=== PATIENT | female | born 1955 | race Caucasian/White ===

== ENCOUNTER 2023-02-01 14:41 | Emergency (ER) | payer MEDICARE, BC ==
[2023-02-01] MEDS ORDERED: Sodium Chloride 0.9% 10 ML Syringe FLUSH PRN (14:52)
[2023-02-01] MEDS ORDERED: Sodium Chloride 0.9% 1,000 ML IV SCH (15:00)
[2023-02-01 15:18] LABS: BASOPHILS ABSOLUTE AUTO 0.07 K/mm3 (0.01-0.08); BASOPHILS PERCENT AUTO 0.8 % (0.1-1.2); EOSINOPHILS ABSOLUTE AUTO 0.18 K/mm3 (0.04-0.36); HEMATOCRIT 39.9 % (34.1-44.9); HEMOGLOBIN 13.1 gm/dl (11.2-15.7); IMMATURE GRAN ABSOLUTE AUTO 0.02 K/mm3 (0.00-0.10); IMMATURE GRAN PERCENT AUTO 0.2 % (<=1.0); LYMPHOCYTES ABSOLUTE AUTO 2.93 K/mm3 (1.18-3.74); LYMPHOCYTES PERCENT AUTO 32.1 % (19.3-51.7); MEAN CORPUSCULAR HEMOGLOBIN 29.4 pg (25.6-32.2); MEAN CORPUSCULAR HGB CONC 32.8 g/dl (32.2-35.5); MEAN CORPUSCULAR VOLUME 89.7 fl (79.4-94.8); MEAN PLATELET VOLUME 9.6 fl (9.4-12.3); MONOCYTES ABSOLUTE AUTO 0.75 K/mm3 (0.24-0.36); MONOCYTES PERCENT AUTO 8.2 % (4.7-12.5); NEUTROPHILS ABSOLUTE AUTO 5.17 K/mm3 (1.56-6.13); NEUTROPHILS PERCENT AUTO 56.7 % (34.0-71.1); PLATELET COUNT,PLT 622 K/mm3 (182-369); RED BLOOD CELL COUNT 4.45 M/mm3 (3.98-5.22); WHITE BLOOD CELL COUNT,WBC 9.12 K/mm3 (3.98-10.04)
[2023-02-01 15:47] LABS: A/G RATIO 0.8 (1-2); ALBUMIN 3.3 g/dl (3.4-5.0); ANION GAP 14.8 (5-15); BILIRUBIN TOTAL 0.9 mg/dL (0.2-1.0); BUN/CREATININE RATIO 19.2 (14-18); CALCIUM 9.3 mg/dL (8.5-10.1); CREATININE 1.2 mg/dL (0.55-1.02); EST CRCL DRUG DOSING (CG) 32.68 mL/min; POTASSIUM,K 3.8 mEq/L (3.5-5.1); PROTEIN TOTAL,TP 7.3 g/dl (6.4-8.2)
== END 2023-02-01 16:26 | disposition home or self-care (01) ==
LOC: JD.ED 14:41
DX: R55 Syncope and collapse (principal); I10 Essential (primary) hypertension
CPT/HCPCS: 36415; 80053; 84484; 85025; 93005; 96360; 99284; J3490; J7030; 93010; 99283

== ENCOUNTER 2024-07-11 08:29 | Day surgery (SDC) | payer MEDICARE, BC ==
[~2024-07-11 08:29] MED LIST: Midazolam 1 MG/ML 2 ML SDV ONE; Ondansetron 4 MG/2 ML SDV ONE; Propofol 200 MG/20 ML SDV ONE; Sodium Chloride 0.9% 10 ML Syringe FLUSH PRN; Sodium Chloride 0.9% 10 ML Syringe FLUSH SCH
[2024-07-11] MEDS: Lactated Ringers 1,000 ML IV SCH (09:10)
[2024-07-11] MEDS: oxyCODONE ER 10 MG TAB.ER PO ONE (09:14)
[2024-07-11] MEDS: Acetaminophen 325 MG Tab PO ONE (09:14)
[2024-07-11] MEDS: Pregabalin 25 MG Cap PO ONE (09:14)
[2024-07-11] MEDS ORDERED: Phenylephrine 1% 10 MG/ML SDV ONE (10:13)
[2024-07-11] MEDS ORDERED: ceFAZolin 2 GM Vial ONE (10:16)
[2024-07-11] MEDS ORDERED: ePHEDrine 50 MG/ML SDV ONE (10:38)
[2024-07-11] MEDS ORDERED: Ondansetron 4 MG/2 ML SDV IVPUSH PRN (10:52)
[2024-07-11] MEDS ORDERED: fentaNYL 100 MCG/2 ML SDV IVPUSH PRN (10:52)
[2024-07-11] MEDS ORDERED: HYDROmorphone 0.5 MG/0.5 ML Syringe IVPUSH PRN (10:52)
[2024-07-11] MEDS ORDERED: Ropivacaine 0.5% 5 MG/ML 30 ML SDV ONE (10:54)
[2024-07-11] MEDS ORDERED: dexmedeTOMIDine HCl 200 MCG/2 ML SDV ONE (10:54)
[2024-07-11] MEDS ORDERED: Propofol 200 MG/20 ML SDV ONE (10:59)
[2024-07-11] MEDS: Morphine 8 MG, EPINEPHrine 0.3 MG, Cefuroxime 750 MG, Ketorolac 30 MG, Sodium Chloride ... PRN (13:30)
[2024-07-11] MEDS: oxyCODONE 5 MG Tab PO PRN (13:30)
[2024-07-11] MEDS: Tranexamic Acid 1,000 MG/10 ML Vial ONE (13:31)
[2024-07-11] MEDS: VANCOmycin 1 GM SDV ONE (13:32)
== END 2024-07-11 16:38 | disposition home or self-care (01) ==
LOC: JD.SDS 08:29
PROVIDERS: ATTEND Orthopaedic Surgery
DX: M17.12 Unilateral primary osteoarthritis, left knee (principal); I10 Essential (primary) hypertension; E78.00 Pure hypercholesterolemia, unspecified; Z79.82 Long term (current) use of aspirin; Z79.899 Other long term (current) drug therapy
CPT/HCPCS: 0055T; 27447; 73560; 97110; 97116; 97161; A9270; J0171; J0690; J0697; J1885; J2250; J2272; J2371; J2405; J2704; J2795; J7120; J3490

== ENCOUNTER 2024-07-12 18:39 | Emergency (ER) | payer MEDICARE, BC ==
[2024-07-12] MEDS ORDERED: Sodium Chloride 0.9% 10 ML Syringe FLUSH PRN (19:26)
[2024-07-12] MEDS ORDERED: Naloxone 0.4 MG/ML SDV IVPUSH PRN (19:45)
[2024-07-12 20:11] LABS: BASOPHILS PERCENT AUTO 0.2 % (0.0-1.0); EOSINOPHILS ABSOLUTE AUTO 0.1 K/mm3 (0.0-0.4); EOSINOPHILS PERCENT AUTO 0.5 % (0.0-6.0); HEMATOCRIT 42.9 % (37.0-47.0); HEMOGLOBIN 14.8 gm/dl (12.0-16.0); IMMATURE GRAN ABSOLUTE AUTO 0.03 K/mm3 (0.00-0.05); IMMATURE GRAN PERCENT AUTO 0.3 % (0.0-0.4); LYMPHOCYTES ABSOLUTE AUTO 0.7 K/mm3 (1.0-4.8); LYMPHOCYTES PERCENT AUTO 6.3 % (24.0-44.0); MEAN CORPUSCULAR HGB CONC 34.5 g/dl (32.0-36.0); MEAN CORPUSCULAR VOLUME 89.9 fl (83.0-99.0); MEAN PLATELET VOLUME 9.3 fl (9.4-12.3); MONOCYTES PERCENT AUTO 8.8 % (0.0-8.0); NEUTROPHILS ABSOLUTE AUTO 9.5 K/mm3 (1.8-7.7); NEUTROPHILS PERCENT AUTO 83.9 % (41.0-71.0); PLATELET COUNT,PLT 333 K/mm3 (150-400); RED BLOOD CELL COUNT 4.77 M/mm3 (4.10-5.30); WHITE BLOOD CELL COUNT,WBC 11.33 K/mm3 (3.9-11.3)
[2024-07-12 20:38] LABS: A/G RATIO 0.8 (1-2); ALBUMIN 3.2 g/dl (3.4-5.0); ANION GAP 13.2 (5-15); BILIRUBIN TOTAL 2.2 mg/dL (0.2-1.0); BUN/CREATININE RATIO 16.4 (14-18); C-REACTIVE PROTEIN 13.61 mg/dL (<0.30); CALCIUM 9.3 mg/dL (8.5-10.1); CREATININE 1.1 mg/dL (0.55-1.02); EST CRCL DRUG DOSING (CG) 34.67 mL/min; MAGNESIUM 1.9 mg/dL (1.8-2.4); POTASSIUM,K 4.2 mEq/L (3.5-5.1)
[2024-07-12 20:41] LABS: LACTIC ACID 1.2 mmol/L (0.4-2.0)
[2024-07-12] MEDS: Sodium Chloride 0.9% 1,000 ML IV SCH (21:51)
[2024-07-12] MEDS: diphenhydrAMINE 50 MG/ML SDV IVPUSH ONE (21:52)
[2024-07-12] MEDS: Metoclopramide 10 MG/2 ML SDV IVPUSH ONE (21:58)
[2024-07-12] MEDS: fentaNYL 100 MCG/2 ML SDV IVPUSH ONE (22:01)
[2024-07-12] MEDS: Apixaban 2.5 MG Tab PO ONE (23:03)
== END 2024-07-13 01:55 | disposition home or self-care (01) ==
LOC: JD.ED 18:39
DX: R11.2 Nausea with vomiting, unspecified (principal); I10 Essential (primary) hypertension; E78.00 Pure hypercholesterolemia, unspecified; Z96.652 Presence of left artificial knee joint; Z79.01 Long term (current) use of anticoagulants; Z79.899 Other long term (current) drug therapy
CPT/HCPCS: 36415; 71045; 80053; 83605; 83690; 83735; 85025; 86140; 87040; 87428; 93971; 96361; 96374; 96375; 99284; A9270; J1200; J2765; J3010; J7030